=== PATIENT | female | born 1935 | race Caucasian/White ===

== ENCOUNTER 2016-09-04 10:44 | Outpatient (CLI) | payer MEDICARE, BC | END 2016-09-04 10:45 | disposition home or self-care (01) | DX: E11.9 Type 2 diabetes mellitus without complications (principal); E78.5 Hyperlipidemia, unspecified; M51.86 Other intervertebral disc disorders, lumbar region ==

== ENCOUNTER 2017-03-11 20:49 | Outpatient (CLI) | payer MEDICARE, BC ==
[2017-03-11 19:11] LABS: BASOPHILS # (AUTO) 0.1 10^3/uL (0.0-0.1); BASOPHILS % (AUTO) 0.9 %; EOSINOPHILS # (AUTO) 0.2 10^3/uL (0.0-0.7); EOSINOPHILS % (AUTO) 2.7 %; HCT - HEMATOCRIT 39.2 % (37.0-47.0); HGB - HEMOGLOBIN 12.8 g/dL (12.0-16.0); LYMPHOCYTES # (AUTO) 1.8 10^3/uL (1.5-3.5); LYMPHOCYTES % (AUTO) 20.7 %; MEAN CORPUSCULAR HEMOGLOBIN 30.8 pg (27.0-31.0); MEAN CORPUSCULAR HGB CONC 32.5 g/dL (32.0-36.0); MEAN CORPUSCULAR VOLUME 94.8 fL (81.0-99.0); MEAN PLATELET VOLUME 9.6 fL (7.9-10.8); MONOCYTES # (AUTO) 0.5 10^3/uL (0.0-1.0); MONOCYTES % (AUTO) 5.5 %; NEUTROPHILS # (AUTO) 6.2 10^3/uL (1.5-6.6); NEUTROPHILS % (AUTO) 70.2 %; NUCLEATED RED BLOOD CELLS AUTO 0.1 /100WBC; RED BLOOD COUNT 4.14 10^6/uL (4.20-5.40); RED CELL DISTRIBUTION WIDTH 13.8 % (12.0-15.0); UNCORRECTED WHITE BLOOD COUNT 8.9 x10^3/uL; WHITE BLOOD COUNT 8.9 x10^3/uL (4.8-10.8)
[2017-03-11 19:40] LABS: CALCIUM 9.1 mg/dL (8.5-10.3); CREATININE 1.3 mg/dL (0.4-1.0); POTASSIUM 4.8 mmol/L (3.5-5.0)
== END 2017-03-11 20:50 | disposition home or self-care (01) ==
LOC: LAB.WCP 20:49
PROVIDERS: ATTEND Family Medicine
DX: I10 Essential (primary) hypertension (principal); D64.9 Anemia, unspecified
CPT/HCPCS: 36415; 80048; 82728; 83540; 84466; 85025

== ENCOUNTER 2017-09-03 08:00 | Outpatient (CLI) | payer MEDICARE, BC ==
[2017-09-03 13:19] LABS: CALCIUM 9.1 mg/dL (8.5-10.3); CREATININE 0.9 mg/dL (0.4-1.0)
== END 2017-09-03 08:01 | disposition home or self-care (01) ==
LOC: LAB.WCP 08:00
PROVIDERS: ATTEND Family Medicine
DX: I10 Essential (primary) hypertension (principal)
CPT/HCPCS: 36415; 80048

== ENCOUNTER 2018-01-19 09:03 | Outpatient (CLI) | payer MEDICARE, BC ==
[2018-01-19 13:12] LABS: HEMOGLOBIN A1C 0.49 g/dL; HEMOGLOBIN A1C % 5.4 % (4.6-6.2)
[2018-01-19 13:23] LABS: ALBUMIN 3.3 g/dL (3.2-5.5); ALBUMIN/GLOBULIN RATIO 0.9 (1.0-2.2); ALKALINE PHOSPHATASE 38 IU/L (42-121); ALT ALANINE AMINOTRANSFERASE < 10 IU/L (10-60); AST ASPARTATE AMINOTRANSFERASE 14 IU/L (10-42); BILIRUBIN,TOTAL 0.5 mg/dL (0.2-1.0); BUN - BLOOD UREA NITROGEN 17 mg/dL (6-20); CALCIUM 8.7 mg/dL (8.5-10.3); CARBON DIOXIDE - CO2 28 mmol/L (21-32); CHLORIDE 102 mmol/L (101-111); CHOL/HDL RATIO 3.2 (<4.4); CHOLESTEROL 146 mg/dL; CREATININE 0.9 mg/dL (0.4-1.0); GFR - MDRD 60 (>89); GLUCOSE 104 mg/dL (70-100); HDL CHOLESTEROL 45 mg/dL; LDL CHOLESTEROL,CALCULATED 65 mg/dL; LDL/HDL RATIO 1.4 (<4.4); SODIUM 138 mmol/L (135-145); VLDL CHOLESTEROL 36 mg/dL
== END 2018-01-19 09:04 ==
LOC: LAB.WCP 09:03
PROVIDERS: ATTEND Family Medicine
DX: E11.9 Type 2 diabetes mellitus without complications (principal); Z79.891 Long term (current) use of opiate analgesic
CPT/HCPCS: 36415; 80053; 80061; 82043; 83036; 83721; 84443

== ENCOUNTER 2018-01-22 11:53 | Outpatient (CLI) | payer MEDICARE, BC | END 2018-01-22 11:54 | disposition EMS.NT | LOC: EMS 11:53 | PROVIDERS: ATTEND Surgery | DX: S00.81XA Abrasion of other part of head, initial encounter (principal); W01.198A Fall on same level from slipping, tripping and stumbling with subsequent striking against other object, initial encounter; Y93.01 Activity, walking, marching and hiking; Y92.008 Other place in unspecified non-institutional (private) residence as the place of occurrence of the external cause ==

== ENCOUNTER 2018-06-02 09:28 | Outpatient (CLI) | payer MEDICARE, BC ==
--- NOTE | 2018-06-03 08:11 | DEXA Report ---
Reason: POST ARTIFICIAL MENOPAUSAL SYNDROME Procedure Date: 06/02/2018 Accession Number: [id number] / [id number] Procedure: DEX - Dexa Spine and/or Hip CPT Code: FULL RESULT: EXAM: Dexa Spine and/or Hip DATE: 06/02/2018 10:18 AM CLINICAL HISTORY: POST ARTIFICIAL MENOPAUSAL SYNDROME TECHNIQUE: Dual energy x-ray absorptiometry (DXA) was performed on a Fra[employer]ion System. Regions measured are the AP Spine, femoral neck, and if needed forearm. COMPARISON: None. In accordance with the International Society for Clinical Densitometry (ISCD) guidelines, data from previous exams may be reanalyzed using current recommendations and techniques. This is done to allow a more accurate basis for comparison with the current study. FINDINGS: The data for the lumbar spine is as follows: BMD (g/cm/cm) T-SCORE Z-SCORE REGION L1 1.274 1.2 2.7 L2 1.370 1.4 2.9 L3 1.734 4.4 6.0 L4 1.845 5.4 6.9 TOTAL 1.321 1.3 2.8 NOTE: All evaluable vertebrae are used for classification The data for the hip is as follows: BMD (g/cm/cm) T-SCORE Z-SCORE REGION Neck 1.074 0.3 2.4 TOTAL 1.045 0.3 2.3 NOTE: The femoral neck or total proximal femur, whichever is lowest, is used for classification. * Denotes significant change at the 95% confidence level. Denotes dissimilar scan types or analysis methods. IMPRESSION: THE WHO CLASSIFICATION BASED ON THE INTERNATIONAL REFERENCE STANDARD IS NORMAL. THE FRACTURE RISK IS NOT INCREASED. Please note that only the summation of vertebral bodies of L1 into was used for the total lumbar spine evaluation given specific degenerative changes at L3-4. RECOMMENDATION: Patients with diagnosis of osteoporosis or osteopenia should have regular bone mineral density assessment. For those eligible for Medicare, routine testing is allowed once every 2 years. Testing frequency can be increased for patients who have rapidly progressing disease or for those who are receiving medical therapy to restore bone mass. COMMENT: World Health Organization (WHO) definitions for osteoporosis and osteopenia: NORMAL BMD: T-score at -1.0 or higher, fracture risk is low OSTEOPENIA BMD: T-score between -1.0 and -2.5, fracture risk is increased. OSTEOPOROSIS BMD: T-score at -2.5 or lower, fracture risk is high. National Osteoporosis Foundation recommends: 1. Obtain adequate dietary calcium (at least 1200 mg per day) and vitamin D (400-800 international units per day). 2. Participate, as appropriate, in regular weightbearing and muscle-strengthening exercise. 3. Avoid tobacco use and reduce alcohol and caffeine intake. 4. For more detailed information see the website at www.NOF.org.
== END 2018-06-02 09:29 | disposition home or self-care (01) ==
LOC: DI 09:28
PROVIDERS: ATTEND Family Medicine
DX: Z78.0 Asymptomatic menopausal state (principal)
CPT/HCPCS: 77080

== ENCOUNTER 2018-07-17 10:16 | Outpatient (CLI) | payer MEDICARE, BC ==
[2018-07-17 13:26] LABS: BASOPHILS % (AUTO) 0.5 %; EOSINOPHILS # (AUTO) 0.2 10^3/uL (0.0-0.7); EOSINOPHILS % (AUTO) 2.8 %; HGB - HEMOGLOBIN 12.5 g/dL (12.0-16.0); LYMPHOCYTES # (AUTO) 1.4 10^3/uL (1.5-3.5); LYMPHOCYTES % (AUTO) 17.4 %; MEAN CORPUSCULAR HEMOGLOBIN 30.2 pg (27.0-31.0); MEAN CORPUSCULAR HGB CONC 32.9 g/dL (32.0-36.0); MEAN CORPUSCULAR VOLUME 91.6 fL (81.0-99.0); MEAN PLATELET VOLUME 9.4 fL (7.9-10.8); MONOCYTES # (AUTO) 0.4 10^3/uL (0.0-1.0); MONOCYTES % (AUTO) 4.6 %; NEUTROPHILS # (AUTO) 6.2 10^3/uL (1.5-6.6); NEUTROPHILS % (AUTO) 74.7 %; PLT - PLATELET COUNT 284 10^3/uL (130-450); RED BLOOD COUNT 4.14 10^6/uL (4.20-5.40); RED CELL DISTRIBUTION WIDTH 14.2 % (12.0-15.0); WHITE BLOOD COUNT 8.3 x10^3/uL (4.8-10.8)
[2018-07-17 13:46] LABS: HB2 TOTAL 13.2 g/dL; HEMOGLOBIN A1C 0.46 g/dL; HEMOGLOBIN A1C % 5.3 % (4.6-6.2)
[2018-07-17 14:24] LABS: ALBUMIN 3.3 g/dL (3.2-5.5); ALBUMIN/GLOBULIN RATIO 0.8 (1.0-2.2); ALKALINE PHOSPHATASE 44 IU/L (42-121); ALT ALANINE AMINOTRANSFERASE < 10 IU/L (10-60); AST ASPARTATE AMINOTRANSFERASE 11 IU/L (10-42); BILIRUBIN,TOTAL 0.6 mg/dL (0.2-1.0); BUN - BLOOD UREA NITROGEN 15 mg/dL (6-20); CALCIUM 8.6 mg/dL (8.5-10.3); CARBON DIOXIDE - CO2 28 mmol/L (21-32); CHLORIDE 104 mmol/L (101-111); CREATININE 1.1 mg/dL (0.4-1.0); GFR - MDRD 47 (>89); GLUCOSE 104 mg/dL (70-100); SODIUM 142 mmol/L (135-145); TOTAL PROTEIN 7.2 g/dL (6.7-8.2)
== END 2018-07-17 23:59 | disposition home or self-care (01) ==
LOC: LAB.WCP 10:16
PROVIDERS: ATTEND Family Medicine
DX: I10 Essential (primary) hypertension (principal); E11.9 Type 2 diabetes mellitus without complications; I42.9 Cardiomyopathy, unspecified
CPT/HCPCS: 36415; 80053; 82043; 83036; 84443; 85025

== ENCOUNTER 2018-10-12 10:07 | Outpatient (CLI) | payer MEDICARE, BC ==
[2018-10-12 13:17] LABS: BASOPHILS # (AUTO) 0.1 10^3/uL (0.0-0.1); BASOPHILS % (AUTO) 0.9 %; EOSINOPHILS # (AUTO) 0.2 10^3/uL (0.0-0.7); EOSINOPHILS % (AUTO) 2.6 %; HGB - HEMOGLOBIN 12.5 g/dL (12.0-16.0); LYMPHOCYTES # (AUTO) 1.8 10^3/uL (1.5-3.5); LYMPHOCYTES % (AUTO) 20.5 %; MEAN CORPUSCULAR HEMOGLOBIN 30.3 pg (27.0-31.0); MEAN CORPUSCULAR HGB CONC 32.9 g/dL (32.0-36.0); MEAN CORPUSCULAR VOLUME 91.9 fL (81.0-99.0); MEAN PLATELET VOLUME 9.4 fL (7.9-10.8); MONOCYTES # (AUTO) 0.4 10^3/uL (0.0-1.0); NEUTROPHILS # (AUTO) 6.1 10^3/uL (1.5-6.6); PLT - PLATELET COUNT 275 10^3/uL (130-450); RED BLOOD COUNT 4.14 10^6/uL (4.20-5.40); RED CELL DISTRIBUTION WIDTH 14.9 % (12.0-15.0); WHITE BLOOD COUNT 8.6 x10^3/uL (4.8-10.8)
[2018-10-12 13:26] LABS: HB2 TOTAL 13.6 g/dL; HEMOGLOBIN A1C 0.5 g/dL; HEMOGLOBIN A1C % 5.5 % (4.6-6.2)
[2018-10-12 13:36] LABS: % IRON SATURATION 23 % (20-50); ALBUMIN 3.4 g/dL (3.2-5.5); ALKALINE PHOSPHATASE 43 IU/L (42-121); ALT ALANINE AMINOTRANSFERASE < 10 IU/L (10-60); AST ASPARTATE AMINOTRANSFERASE 14 IU/L (10-42); BILIRUBIN,TOTAL 0.7 mg/dL (0.2-1.0); BUN - BLOOD UREA NITROGEN 24 mg/dL (6-20); CALCIUM 9.1 mg/dL (8.5-10.3); CARBON DIOXIDE - CO2 29 mmol/L (21-32); CHLORIDE 104 mmol/L (101-111); CREATININE 0.9 mg/dL (0.4-1.0); GFR - MDRD 60 (>89); GLUCOSE 105 mg/dL (70-100); IRON 54 ug/dL (28-170); SODIUM 140 mmol/L (135-145); TOTAL IRON BINDING CAPACITY 231 ug/dL (250-450); TOTAL PROTEIN 6.9 g/dL (6.7-8.2); TRANSFERRIN 165 mg/dL (192-382)
== END 2018-10-12 23:59 | disposition home or self-care (01) ==
LOC: LAB.WCP 10:07
PROVIDERS: ATTEND Family Medicine
DX: D64.9 Anemia, unspecified (principal); E11.9 Type 2 diabetes mellitus without complications; I42.9 Cardiomyopathy, unspecified
CPT/HCPCS: 36415; 80053; 82728; 83036; 83540; 84466; 85025

== ENCOUNTER 2019-04-20 08:00 | Outpatient (CLI) | payer MEDICARE, BC ==
[2019-04-20 12:26] LABS: BASOPHILS # (AUTO) 0.1 10^3/uL (0.0-0.1); BASOPHILS % (AUTO) 0.9 %; EOSINOPHILS # (AUTO) 0.2 10^3/uL (0.0-0.7); EOSINOPHILS % (AUTO) 2.8 %; HGB - HEMOGLOBIN 13.5 g/dL (12.0-16.0); LYMPHOCYTES # (AUTO) 1.9 10^3/uL (1.5-3.5); LYMPHOCYTES % (AUTO) 22.4 %; MEAN CORPUSCULAR HEMOGLOBIN 30.4 pg (27.0-31.0); MEAN CORPUSCULAR HGB CONC 31.9 g/dL (32.0-36.0); MEAN CORPUSCULAR VOLUME 95.3 fL (81.0-99.0); MEAN PLATELET VOLUME 10.9 fL (7.9-10.8); MONOCYTES # (AUTO) 0.6 10^3/uL (0.0-1.0); NEUTROPHILS # (AUTO) 5.7 10^3/uL (1.5-6.6); NEUTROPHILS % (AUTO) 66.2 %; PLT - PLATELET COUNT 264 10^3/uL (130-450); RED BLOOD COUNT 4.44 10^6/uL (4.20-5.40); RED CELL DISTRIBUTION WIDTH 14.6 % (12.0-15.0); WHITE BLOOD COUNT 8.6 x10^3/uL (4.8-10.8)
[2019-04-20 12:55] LABS: HB2 TOTAL 13.9 g/dL; HEMOGLOBIN A1C 0.48 g/dL; HEMOGLOBIN A1C % 5.3 % (4.6-6.2)
[2019-04-20 13:04] LABS: ALBUMIN/GLOBULIN RATIO 1.2 (1.0-2.2); ALKALINE PHOSPHATASE 36 IU/L (42-121); ALT ALANINE AMINOTRANSFERASE < 10 IU/L (10-60); AST ASPARTATE AMINOTRANSFERASE 14 IU/L (10-42); BILIRUBIN,TOTAL 0.9 mg/dL (0.2-1.0); BUN - BLOOD UREA NITROGEN 21 mg/dL (6-20); CARBON DIOXIDE - CO2 29 mmol/L (21-32); CHLORIDE 99 mmol/L (101-111); GFR - MDRD 53 (>89); GLUCOSE 106 mg/dL (70-100); MAGNESIUM 1.9 mg/dL (1.7-2.8); SODIUM 138 mmol/L (135-145); TOTAL PROTEIN 7.3 g/dL (6.7-8.2)
== END 2019-04-20 23:59 | disposition home or self-care (01) ==
LOC: LAB.WCP 08:00
PROVIDERS: ATTEND Family Medicine
DX: D05.90 Unspecified type of carcinoma in situ of unspecified breast (principal); D64.9 Anemia, unspecified; K21.9 Gastro-esophageal reflux disease without esophagitis; E11.9 Type 2 diabetes mellitus without complications; I10 Essential (primary) hypertension
CPT/HCPCS: 36415; 80053; 82607; 83036; 83735; 84443; 85025

== ENCOUNTER 2019-08-27 09:39 | Outpatient (CLI) | payer MEDICARE, BC ==
[2019-08-27 13:53] LABS: CALCIUM 8.8 mg/dL (8.5-10.3); CREATININE 1.4 mg/dL (0.4-1.0)
[2019-08-27 14:00] LABS: HB2 TOTAL 13.5 g/dL; HEMOGLOBIN A1C 0.49 g/dL; HEMOGLOBIN A1C % 5.5 % (4.6-6.2)
[2019-08-27 19:15] LABS: CREATININE,URINE 45.3 mg/dL; MICROALBUM/CREATININE RATIO,UR 125.8 ug/mg (<30.0); MICROALBUMIN,URINE 5.7 mg/dL (0-300.0)
== END 2019-08-27 23:59 | disposition home or self-care (01) ==
LOC: LAB.WCP 09:39
PROVIDERS: ATTEND Family Medicine
DX: E11.9 Type 2 diabetes mellitus without complications (principal); I12.9 Hypertensive chronic kidney disease with stage 1 through stage 4 chronic kidney disease, or unspecified chronic kidney disease; N18.3 Chronic kidney disease, stage 3 (moderate); D05.90 Unspecified type of carcinoma in situ of unspecified breast; Z79.891 Long term (current) use of opiate analgesic
CPT/HCPCS: 36415; 80048; 82043; 82570; 83036

== ENCOUNTER 2020-04-06 14:41 | Outpatient (CLI) | payer MEDICARE, BC | END 2020-04-06 14:42 | disposition EMS.NT | LOC: EMS 14:41 | PROVIDERS: ATTEND Surgery | DX: R07.9 Chest pain, unspecified (principal) ==

== ENCOUNTER 2020-08-25 02:41 | Outpatient (CLI) | payer MEDICARE, BC | END 2020-08-25 02:42 | disposition left against medical advice (07) | LOC: EMS 02:41 | DX: Z03.89 Encounter for observation for other suspected diseases and conditions ruled out (principal) ==

== ENCOUNTER 2020-09-16 00:22 | Outpatient (CLI) | payer MEDICARE, BC | END 2020-09-16 00:23 | disposition critical access hospital (66) | LOC: EMS 00:22 | PROVIDERS: ATTEND Emergency Medicine | DX: S00.83XA Contusion of other part of head, initial encounter (principal); M25.561 Pain in right knee; W18.30XA Fall on same level, unspecified, initial encounter; Y93.89 Activity, other specified | CPT/HCPCS: A0425; A0429 ==

== ENCOUNTER 2020-09-16 00:39 | Emergency (ER) | payer MEDICARE, BC ==
--- NOTE | 2020-09-16 00:40 | ED Physician Documentation ---
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 struck her face and c/o right facial pain and swelling, headache, and right knee pain and swelling. BIBA. Denies LOC. Review of Systems Eyes: reports: Reviewed and negative Cardiac: reports: Reviewed and negative Respiratory: reports: Reviewed and negative GI: reports: Reviewed and negative Skin: denies: Laceration (s) Musculoskeletal: reports: Joint pain (right knee). denies: Neck pain Neurologic: reports: Headache, Head injury. 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 Derm: Skin cancer surgery - Present Medications Home Medications: Ambulatory Orders Medication Instructions Recorded Confirmed Aspirin Chewable [St Sid 81 mg PO DAILY 11/19/12 01/04/13 Aspirin] Cholecalciferol (Vitamin D3) 400 unit PO TID 11/19/12 01/04/13 [Vitamin D] Ibuprofen 600 mg PO QID 11/19/12 01/04/13 Losartan [Cozaar] 50 mg PO DAILY 11/19/12 01/04/13 Metformin HCl [Metformin HCl ER] 1,000 mg PO BID 11/19/12 01/04/13 [place]-3 Fatty Acids [Fish Oil] 1,000 mg PO BID 11/19/12 01/04/13 Omeprazole Magnesium [Prilosec Otc] 20 mg PO AC 11/19/12 01/04/13 Raloxifene HCl [Evista] 60 mg PO DAILY 11/19/12 01/04/13 Simvastatin [Zocor] 80 mg PO DAILY 11/19/12 01/04/13 Carvedilol 12.5 mg PO BID 01/04/13 01/04/13 Digoxin [Lanoxin] 125 mcg PO DAILY 01/04/13 01/04/13 Furosemide [Lasix] 60 mg PO DAILY 01/04/13 01/04/13 Potassium Chloride 20 meq PO BID 01/04/13 01/04/13 - Allergies Allergies/Adverse Reactions: Allergies Allergy/AdvReac Type Severity Reaction Status Date / Time naproxen [From Naprosyn] AdvReac Rash Verified 01/26/14 11:12 - Social History Does the pt smoke?: No Smoking Status: Never smoker Does the pt drink ETOH?: Yes Does the pt have substance abuse?: No PD ED PE NORMAL - Vitals Vital signs reviewed: Yes - General General: Alert and oriented X 3, No acute distress, Well developed/nourished - HEENT HEENT: PERRL, EOMI - Neck Neck: No bony TTP - Cardiac Cardiac: RRR, No murmur - Respiratory Respiratory: No respiratory distress, Clear bilaterally - Abdomen Abdomen: Soft, Non tender - Back Back: No spinal TTP - Neuro Neuro: Alert and oriented X 3, scale shooter 2-12 intact, No motor deficit, No sensory deficit, Normal speech Eye Opening: Spontaneous Motor: Obeys Commands Verbal: Oriented GCS Score: 15 PD ED PE EXPANDED - HEENT HEENT Visual: 1 - bruising, swelling, tenderness - Extremities Extremities: Tenderness, Limited ROM, Swelling, Bruising, Right knee Results - Vitals Vitals: Vital Signs - 24 hr 09/16/20 00:40 Temperature 36.9 C Heart Rate 84 Respiratory 18 Rate Blood Pressure 170/93 H O2 Saturation 99 Oxygen O2 Source Room air - Rads (name of study) right knee xrays Radiology: Prelim report reviewed, See rad report maxillofacial CT Radiology: Prelim report reviewed, See rad report CT head Radiology: Prelim report reviewed, See rad report CT cervical spine Radiology: Prelim report reviewed, See rad report PD MEDICAL DECISION MAKING - ED course Complexity details: reviewed results, re-evaluated patient, considered differential, d/w patient ED course: no acute findings on CT head, neck, maxillofacial bones, nor on plain-film right knee xrays. Results d/w patient. She is awake, alert, conversant, oriented x 3 and answers quickly and appropriately. She requests ibuprofen for her headache. She is comfortable with d/c home. Departure - Departure Disposition: 01 Home, Self Care Clinical Impression: Contusion of face, Right knee sprain Condition: Good Instructions: ED Contusion Face, ED Sprain Knee Follow-Up: Doug Miner DO [Primary Care Provider] - Within 1 week
[2020-09-16] MEDS ORDERED: IBUPROFEN 400 MG TABLET PO STA (02:16)
[2020-09-16 03:32] VITALS: BP 158/88
--- NOTE | 2020-09-16 08:37 | CT Report ---
PROCEDURE: CERVICAL SPINE WO INDICATIONS: fall, high risk due to age by NEXUS TECHNIQUE: Noncontrast 3 mm thick sections acquired from the skull base to the T4 level. Sagittal and coronal r eformats were then constructed. For radiation dose reduction, the following was used: automated exp osure control, adjustment of mA and/or kV according to patient size. COMPARISON: None. FINDINGS: Image quality: Excellent. Bones: No fractures or dislocations. Visualized superior ribs are intact. Moderate to severe cervic al spondylosis. Trace degenerative anterolisthesis of C6 on C7. Disc height loss, anterior osteophyte s, and uncovertebral joint osteophytes at C3-C4 through C5-C6. Multilevel facet arthropathy. Soft tissues: Prevertebral soft tissues are normal in thickness. No paravertebral hematomas. No ap ical pneumothoraces. IMPRESSION: 1. No evidence acute cervical fracture or dislocation. 2. Cervical spondylosis. A preliminary report with the above findings was provided at the time of the study by [facility]. Reviewed by: Austin Lau MD on 09/16/2020 7:36 AM [facility] Approved by: Austin Lau MD on 09/16/2020 7:36 AM [facility] Station ID: [id number]
--- NOTE | 2020-09-16 08:57 | XRAY Report ---
PROCEDURE: Knee 4 View RT INDICATIONS: fall, right knee pain and swelling TECHNIQUE: 5 views of the right knee(s) were acquired. COMPARISON: None. FINDINGS: Bones: No fractures or dislocations. No suspicious bony lesions. Bones are somewhat osteopenic. Tr icompartment degenerative change. Tricompartment osteophytes. Soft tissues: Small joint effusion. No suspicious soft tissue calcifications. IMPRESSION: 1. Degenerative arthritis, small knee joint effusion. 2. No evidence acute bony abnormality of the right knee. Comment: If suspect internal derangement of the knee, consider right knee MRI. A preliminary report with the above findings was provided at the time of the study by [facility]. Reviewed by: Austin Lau MD on 09/16/2020 7:56 AM [facility] Approved by: Austin Lau MD on 09/16/2020 7:56 AM [facility] Station ID: [id number]
--- NOTE | 2020-09-16 09:02 | CT Report ---
PROCEDURE: HEAD WO INDICATIONS: fall, obvious facial injury on exam TECHNIQUE: Noncontrast 4.5 mm thick angled axial sections acquired from the foramen magnum to the vertex. For r adiation dose reduction, the following was used: automated exposure control, adjustment of mA and/or kV according to patient size. COMPARISON: None. FINDINGS: Image quality: Excellent. CSF spaces: Basal cisterns are patent. No extra-axial fluid collections. Ventricles are normal in size and shape. Brain: No midline shift. No intracranial masses or hemorrhage. Mcallister-white matter interface is norm al. Age-related volume loss and small vessel ischemic change. Skull and face: Calvarium and visualized facial bones are intact, without suspicious lesions. Large right anterior frontal scalp hematoma. Sinuses: Visualized sinuses and mastoids are clear. IMPRESSION: 1. Large right anterior frontal scalp hematoma. 2. Age-related volume loss and small vessel ischemic change. 3. No evidence acute stroke, hemorrhage, or mass. 4. No evidence of significant intracranial sequelae of acute trauma. A preliminary report with the above findings was provided at the time of the study by [facility]. Reviewed by: Austin Lau MD on 09/16/2020 8:01 AM [facility] Approved by: Austin Lau MD on 09/16/2020 8:01 AM [facility] Station ID: [id number]
--- NOTE | 2020-09-16 09:07 | CT Report ---
PROCEDURE: MAXILLOFACIAL WO INDICATIONS: fall, facial injury TECHNIQUE: Noncontrast 1.5 mm thick axial images acquired from the mandible through the frontal sinuses, with co monique and sagittal reformatting. For radiation dose reduction, the following was used: automated ex posure control, adjustment of mA and/or kV according to patient size. COMPARISON: None. FINDINGS: Image quality: Excellent. Bones and teeth: Orbital feliz are intact. Sinus feliz show no fracture or deformity. Nasal bones and septum are intact. Visualized portions of the mandible demonstrate no fractures or subluxation. Zygomatic arches are intact. Pterygoid plates are intact. Visualized portions of the skull base an d auditory canals are intact. The lower teeth are all missing. The most posterior remaining right up per tooth has a large cavity. Sinuses: Paranasal sinuses are aerated, without fluid levels, mucosal thickening, or mucoceles. Mas toid air cells are aerated. Soft tissues: No edema, masses, or fluid collections. No enlarged lymph nodes. Large right anterior frontal scalp hematoma. Vascular: Visualized vascular structures appear normal in the absence of contrast. Bony vascular fo ramina and canals are intact. IMPRESSION: 1. Large right anterior frontal scalp hematoma. 2. No evidence of displaced facial fracture or mandibular fracture. Paranasal sinuses are clear. 3. Incidental note made of presence of a large dental cavity. A preliminary report with the above findings was provided at the time of the study by [facility]. Reviewed by: Austin Lau MD on 09/16/2020 8:06 AM [facility] Approved by: Austin Lau MD on 09/16/2020 8:06 AM [facility] Station ID: [id number]
== END 2020-09-16 03:31 | disposition home or self-care (01) ==
LOC: EDUNIT# → ED 00:39
DX: S00.11XA Contusion of right eyelid and periocular area, initial encounter (principal); S83.91XA Sprain of unspecified site of right knee, initial encounter; W06.XXXA Fall from bed, initial encounter; Y92.009 Unspecified place in unspecified non-institutional (private) residence as the place of occurrence of the external cause; E11.9 Type 2 diabetes mellitus without complications; Z79.84 Long term (current) use of oral hypoglycemic drugs; I10 Essential (primary) hypertension
CPT/HCPCS: 70450; 70486; 72125; 73564; 99282; 99284; A9270

== ENCOUNTER 2021-01-05 08:00 | Outpatient (CLI) | payer MEDICARE, BC ==
[2021-01-05 18:07] LABS: BASOPHILS # (AUTO) 0.1 10^3/uL (0.0-0.1); BASOPHILS % (AUTO) 0.7 %; EOSINOPHILS # (AUTO) 0.3 10^3/uL (0.0-0.7); EOSINOPHILS % (AUTO) 3.6 %; HCT - HEMATOCRIT 41.4 % (37.0-47.0); HGB - HEMOGLOBIN 12.9 g/dL (12.0-16.0); LYMPHOCYTES # (AUTO) 1.5 10^3/uL (1.5-3.5); LYMPHOCYTES % (AUTO) 21.3 %; MEAN CORPUSCULAR HEMOGLOBIN 30.1 pg (27.0-31.0); MEAN CORPUSCULAR HGB CONC 31.2 g/dL (32.0-36.0); MEAN CORPUSCULAR VOLUME 96.5 fL (81.0-99.0); MEAN PLATELET VOLUME 11.4 fL (7.9-10.8); MONOCYTES # (AUTO) 0.4 10^3/uL (0.0-1.0); NEUTROPHILS # (AUTO) 4.7 10^3/uL (1.5-6.6); PLT - PLATELET COUNT 261 10^3/uL (130-450); RED BLOOD COUNT 4.29 10^6/uL (4.20-5.40); RED CELL DISTRIBUTION WIDTH 14.2 % (12.0-15.0)
[2021-01-05 18:40] LABS: ALBUMIN/GLOBULIN RATIO 1.2 (1.0-2.2); ALKALINE PHOSPHATASE 43 IU/L (42-121); ALT ALANINE AMINOTRANSFERASE < 10 IU/L (10-60); AST ASPARTATE AMINOTRANSFERASE 17 IU/L (10-42); BILIRUBIN,TOTAL 0.5 mg/dL (0.2-1.0); BUN - BLOOD UREA NITROGEN 16 mg/dL (6-20); CALCIUM 8.6 mg/dL (8.5-10.3); CARBON DIOXIDE - CO2 25 mmol/L (21-32); CHLORIDE 94 mmol/L (101-111); CHOL/HDL RATIO 3.3 (<4.4); CHOLESTEROL 184 mg/dL; GFR - MDRD 52 (>89); GLUCOSE 112 mg/dL (70-100); HDL CHOLESTEROL 55 mg/dL; LDL CHOLESTEROL,CALCULATED 98 mg/dL; LDL/HDL RATIO 1.8 (<4.4); POTASSIUM 4.5 mmol/L (3.5-5.0); SODIUM 129 mmol/L (135-145); TOTAL PROTEIN 7.3 g/dL (6.7-8.2); TRIGLYCERIDES 157 mg/dL; VLDL CHOLESTEROL 31 mg/dL
[2021-01-05 18:44] LABS: THYROID STIMULATING HORMONE 2.41 uIU/mL (0.34-5.60)
[2021-01-05 20:35] LABS: ESTIMATED AVERAGE GLUCOSE 114 mg/dL (70-100); HEMOGLOBIN A1c% 5.6 % (4.27-6.07)
== END 2021-01-05 23:59 | disposition home or self-care (01) ==
LOC: LAB.WCP 08:00
PROVIDERS: ATTEND Internal Medicine
DX: I10 Essential (primary) hypertension (principal); E11.9 Type 2 diabetes mellitus without complications
CPT/HCPCS: 36415; 80053; 80061; 82043; 82570; 83036; 83721; 84443; 85025

== ENCOUNTER 2021-01-08 18:30 | Outpatient (CLI) | payer MEDICARE, BC ==
[2021-01-09 13:28] LABS: MICROALBUM/CREATININE RATIO,UR 195.6 ug/mg (<30.0); MICROALBUMIN,URINE 17.6 mg/dL (0-300.0)
== END 2021-01-08 23:59 | disposition home or self-care (01) ==
LOC: LAB.R 18:30
PROVIDERS: ATTEND Internal Medicine
DX: E11.9 Type 2 diabetes mellitus without complications (principal)
CPT/HCPCS: 82043; 82570

== ENCOUNTER 2021-08-07 08:00 | Outpatient (CLI) | payer MEDICARE, BC | END 2021-08-07 23:59 | disposition home or self-care (01) | LOC: LAB.WCP 08:00 | PROVIDERS: ATTEND Family Medicine | DX: E87.1 Hypo-osmolality and hyponatremia (principal) | CPT/HCPCS: 83930; 83935; 84300 ==

== ENCOUNTER 2021-08-16 08:00 | Outpatient (CLI) | payer MEDICARE, BC | END 2021-08-16 23:59 | LOC: LAB 08:00 | PROVIDERS: ATTEND Family Medicine | DX: L03.311 Cellulitis of abdominal wall (principal); L03.032 Cellulitis of left toe | CPT/HCPCS: 87070; 87181; 87205 ==

== ENCOUNTER 2021-10-11 08:00 | Outpatient (CLI) | payer MEDICARE, BC ==
[2021-10-11 18:12] LABS: BASOPHILS # (AUTO) 0.1 10^3/uL (0.0-0.1); BASOPHILS % (AUTO) 0.4 %; EOSINOPHILS # (AUTO) 1.7 10^3/uL (0.0-0.7); EOSINOPHILS % (AUTO) 11.1 %; HCT - HEMATOCRIT 35.5 % (37.0-47.0); LYMPHOCYTES % (AUTO) 12.8 %; MEAN CORPUSCULAR HEMOGLOBIN 31.4 pg (27.0-31.0); MEAN CORPUSCULAR VOLUME 101.4 fL (81.0-99.0); MEAN PLATELET VOLUME 11.6 fL (7.9-10.8); MONOCYTES # (AUTO) 0.8 10^3/uL (0.0-1.0); MONOCYTES % (AUTO) 5.1 %; NEUTROPHILS % (AUTO) 69.8 %; PLT - PLATELET COUNT 338 10^3/uL (130-450); RED CELL DISTRIBUTION WIDTH 14.6 % (12.0-15.0); WHITE BLOOD COUNT 15.7 x10^3/uL (4.8-10.8)
[2021-10-11 18:42] LABS: ALBUMIN 1.7 g/dL (3.2-5.5); ALBUMIN/GLOBULIN RATIO 0.5 (1.0-2.2); ALKALINE PHOSPHATASE 110 IU/L (42-121); ALT ALANINE AMINOTRANSFERASE 17 IU/L (10-60); AST ASPARTATE AMINOTRANSFERASE 25 IU/L (10-42); BILIRUBIN,TOTAL 0.5 mg/dL (0.2-1.0); BUN - BLOOD UREA NITROGEN 45 mg/dL (6-20); CALCIUM 7.6 mg/dL (8.5-10.3); CARBON DIOXIDE - CO2 26 mmol/L (21-32); CHLORIDE 102 mmol/L (101-111); CHOL/HDL RATIO 5.1 (<4.4); CHOLESTEROL 108 mg/dL; CREATININE 1.9 mg/dL (0.4-1.0); GFR - MDRD 25 (>89); GLUCOSE 123 mg/dL (70-100); HDL CHOLESTEROL 21 mg/dL; LDL CHOLESTEROL,CALCULATED 51 mg/dL; LDL/HDL RATIO 2.4 (<4.4); POTASSIUM 5.3 mmol/L (3.5-5.0); SODIUM 140 mmol/L (135-145); TOTAL PROTEIN 5.3 g/dL (6.7-8.2); TRIGLYCERIDES 182 mg/dL; VLDL CHOLESTEROL 36 mg/dL
[2021-10-11 21:28] LABS: ESTIMATED AVERAGE GLUCOSE 105 mg/dL (70-100); HEMOGLOBIN A1c% 5.3 % (4.27-6.07)
== END 2021-10-11 23:59 ==
LOC: LAB.N 08:00
PROVIDERS: ATTEND Family Medicine
DX: E87.1 Hypo-osmolality and hyponatremia (principal); E11.9 Type 2 diabetes mellitus without complications
CPT/HCPCS: 36415; 80053; 80061; 83036; 83721; 85025

== ENCOUNTER 2021-10-19 16:19 | Emergency (ER) | payer MEDICARE, BC ==
--- OUTSIDE RECORDS SUMMARY | 2021-10-19 16:41 | EXTERNAL MEDICAL SUMMARY RPT | Continuity of Care Document ---
:1935 Author Organization [facility] Address [address] [place] [address] Phone Allergies No information. Encounters No information. Medications No information. 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
--- NOTE | 2021-10-19 18:31 | ED Physician Documentation ---
PD HPI LOWER EXT INJURY - Stated complaint Stated Complaint: TOE INF - Chief complaint Chief Complaint: Ext Problem - History obtained from History obtained from: Patient, Family - Additional information Additional information: The pt is brought to the ED for CC of "sepsis." The pt has an ongoing, shallow abrasion/sore on her L middle toe, and has been on a couple of courses of antibiotics for it in recent months, per daughter. She lives in an assisted living facility, and has home health check on her there. Daughter states that home health always gets very low blood pressures on the pt (75 systolic, she reports), but that the pt seems to feel fine, and whenever she goes to her PA's office, her BP is normal. The pt has had a decreasing appetite for months, but lately, has been drinking Ensure and doing well. She has had no fevers. The pt a few days ago developed some blisters at the bases of her toes, for unclear reasons (pt is usually barefoot at her apartment, but does sometimes wear slippers). The daughter reports that a culture of one was done in pt's PA's office 3 days ago, and came back positive for S. aureus. She was also found to have a leukocytosis, though there was no increase in redness. Daughter received a call this morning, stating that since the pt has had some low blood pressure readings, plus staph in her blister fluid and an elevated WBC count, she should "get to the emergency department immediately for IV antibiotics for sepsis." The pt denies complaints. She is not lightheaded, weaker than usual, or feeling a sense of fever or chills. No numbness or pain in her toe or foot. She has been taking her Ensure well, with no change in her appetite. No mental status change. She has had occasional erythematous rashes in distant locations (medial upper R arm, for example) for unclear reasons, which daughter states she was told could be the cellulitis spreading because of the sepsis. No symptoms of illness anywhere else. Review of the pt's office visit record from a few days ago reveals completely normal BP, HR and temperature. She is recorded as having no complaints, seeming improved from her prior visit, and with no worsening of the toe. CBC in question drawn on that day, and low blood pressure readings by home health had been occurring before that visit. Review of Systems Ten Systems: 10 systems reviewed and negative Constitutional: reports: Reviewed and negative Eyes: reports: Reviewed and negative Ears: reports: Reviewed and negative Nose: reports: Reviewed and negative Throat: reports: Reviewed and negative Cardiac: reports: Reviewed and negative Respiratory: reports: Reviewed and negative GI: reports: Reviewed and negative : reports: Reviewed and negative Skin: reports: Lesions (toes/foot) Musculoskeletal: reports: Reviewed and negative Neurologic: reports: Reviewed and negative Psychiatric: reports: Reviewed and negative Endocrine: reports: Reviewed and negative Immunocompromised: reports: Reviewed and negative PD PAST MEDICAL HISTORY - Past Medical History Cardiovascular: Congestive heart failure, Hypertension, Other Respiratory: None Endocrine/Autoimmune: Type 2 diabetes GI: GERD : Frequency HEENT: None Psych: None Musculoskeletal: None Derm: None - Past Surgical History 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 Derm: Skin cancer surgery - Present Medications Home Medications: Ambulatory Orders Medication Instructions Recorded Confirmed Aspirin Chewable [St Sid 81 mg PO DAILY 11/19/12 01/04/13 Aspirin] Cholecalciferol (Vitamin D3) 400 unit PO TID 11/19/12 01/04/13 [Vitamin D] Ibuprofen 600 mg PO QID 11/19/12 01/04/13 Losartan [Cozaar] 50 mg PO DAILY 11/19/12 01/04/13 Metformin HCl [Metformin HCl ER] 1,000 mg PO BID 11/19/12 01/04/13 [place]-3 Fatty Acids [Fish Oil] 1,000 mg PO BID 11/19/12 01/04/13 Omeprazole Magnesium [Prilosec Otc] 20 mg PO AC 11/19/12 01/04/13 Raloxifene HCl [Evista] 60 mg PO DAILY 11/19/12 01/04/13 Simvastatin [Zocor] 80 mg PO DAILY 11/19/12 01/04/13 Carvedilol 12.5 mg PO BID 01/04/13 01/04/13 Digoxin [Lanoxin] 125 mcg PO DAILY 01/04/13 01/04/13 Furosemide [Lasix] 60 mg PO DAILY 01/04/13 01/04/13 Potassium Chloride 20 meq PO BID 01/04/13 01/04/13 - Allergies Allergies/Adverse Reactions: Allergies Allergy/AdvReac Type Severity Reaction Status Date / Time naproxen [From Naprosyn] AdvReac Rash Verified 10/19/21 16:27 - Social History Does the pt smoke?: No Smoking Status: Never smoker Does the pt drink ETOH?: Yes Does the pt have substance abuse?: No PD ED PE NORMAL - Vitals Vital signs reviewed: Yes - General General: No acute distress, Well developed/nourished, Other (Alert, well- appearing elderly patient who is conversant and in no apparent distress.) - HEENT HEENT: Atraumatic, PERRL, EOMI, Moist mucous membranes - Neck Neck: Supple, no meningeal sign - Cardiac Cardiac: RRR, No murmur, Strong equal pulses - Respiratory Respiratory: No respiratory distress, Clear bilaterally - Abdomen Abdomen: Soft, Non tender, Non distended - Derm Derm: Normal color, Warm and dry, No rash, Other (L middle toe without erythema, tenderness, or edema, including of adjacent distal portion foot. Dry, scabbed lesion on dorsum. No fluctuance. 2 small bullae at base of toes, with clear fluid. 2 small desquamated patches just proximal. No soft tissue edema/induration associated.) - Extremities Extremities: No deformity - Neuro Neuro: Alert and oriented X 3 - Psych Psych: Normal mood, Normal affect PD ED PE EXPANDED - Free text exam Free text exam: 5 cm patch of moderately erythematous, MP rash on pt's R upper arm on medial aspect. No tenderness, induration or fluctuance. Results - Vitals Vitals: Oxygen O2 Source Room air PD MEDICAL DECISION MAKING - ED course Complexity details: reviewed old records, considered differential, d/w patient, d/w family ED course: The pt was extremely well-appearing, and did not have any vital sign abnormalities concerning for sepsis here. Her toe did not look infected here, and her blisters contained clear fluid. It is not surprising that the culture was positive for S. aureus, as this common skin bacteria likely was present on the immediately adjacent skin when the bulla was lanced. I have reviewed the pt's records, and find nothing concerning for sepsis in the pt's recent visit. I have d/w daughter that cellulitis spreads through the soft tissues, not to distant locations via blood stream. The pt looks very good, and I do not feel she has sepsis, or even signs/sx of an acute infection. I cannot explain the Home Health team's low blood pressure readings, but this has not been replicated either here or at pt's doctor's office. The daughter would like to take the pt home. We have discussed the usual indications for return and follow-up. Departure - Departure Disposition: Home, Self Care Clinical Impression: Chronic toe ulcer Qualifiers: Laterality: left Non-pressure ulcer stage: limited to breakdown of skin Qualified Code(s): L97.521 - Non-pressure chronic ulcer of other part of left foot limited to breakdown of skin Condition: Stable Instructions: ED Ulcer Skin Simple Comments: You appear to have a chronic, shallow ulcer of your left middle toe. There is no evidence of an acute cellulitis at this time. There is some mild purplish discoloration of the toe, but no redness, swelling, or tenderness that we would expect with an active cellulitis. Additionally, the wound is dry. It is not exactly clear why you have developed the blisters over the top of your foot. However, there does not appear to be any infection of the underlying tissue, and there is no pus noted within the intact blisters. As far as the concern over sepsis, you were found to have a moderately elevated white blood cell count on your labs, but in the absence of fever, low blood pressure, or elevated heart rate, criteria for sepsis are not met, and sepsis is not present. We have reviewed your records, which recorded a normal blood pressure, heart rate, and temperature just a few days ago in your doctor's office. Additionally, your blood pressures, heart rate, and temperature have all been normal here. It is important that you continue wound care to prevent worsening of your chronic sore. If you do begin to notice increasing pain in the toe, accompanied by intense, spreading redness, and/or swelling of the toe that is worse than usual, you should have it rechecked. You did have a culture that was performed of the open sore, and this did show normal skin bacteria. This is common in chronic sores, so criteria for cellulitis, or skin infection, include not only bacteria in the wound but also signs of cellulitis around the wound. These are not present. Please continue to follow with your PA Ms. Hernandes, and with Dr. Miner. Please continue your current medications as directed. Discharge Date/Time: 10/19/21 18:53
[2021-10-19 18:47] VITALS: BP 108/60
== END 2021-10-19 18:53 | disposition home or self-care (01) ==
LOC: ED 16:19
DX: E11.621 Type 2 diabetes mellitus with foot ulcer (principal); L97.521 Non-pressure chronic ulcer of other part of left foot limited to breakdown of skin; Z79.84 Long term (current) use of oral hypoglycemic drugs; I11.0 Hypertensive heart disease with heart failure; I50.9 Heart failure, unspecified
CPT/HCPCS: 99281; 99282

== ENCOUNTER 2021-11-05 08:00 | Outpatient (CLI) | payer MEDICARE, BC ==
[2021-11-05 19:19] LABS: ALBUMIN 2.1 g/dL (3.2-5.5); ALBUMIN/GLOBULIN RATIO 0.6 (1.0-2.2); BILIRUBIN,TOTAL 0.5 mg/dL (0.2-1.0); CALCIUM 8.2 mg/dL (8.5-10.3); CREATININE 1.5 mg/dL (0.4-1.0); TOTAL PROTEIN 5.7 g/dL (6.7-8.2)
[2021-11-05 19:33] LABS: POTASSIUM 6.5 mmol/L (3.5-5.0)
== END 2021-11-05 08:01 | disposition home or self-care (01) ==
LOC: LAB.R 08:00
PROVIDERS: ATTEND Physician Assistant
DX: L29.8 Other pruritus (principal)
CPT/HCPCS: 80053

== ENCOUNTER 2021-11-14 08:00 | Outpatient (CLI) | payer MEDICARE, BC | END 2021-11-17 18:01 | disposition home or self-care (01) | LOC: LAB.R 08:00 | PROVIDERS: ATTEND Family Medicine | DX: E87.6 Hypokalemia (principal) | CPT/HCPCS: 84132 ==